=== PATIENT | male | born 1985 | race Caucasian/White ===

== ENCOUNTER 2019-08-17 23:40 | Emergency (ER) | payer MEDICAID ==
[~2019-08-17] VITALS: Ht 180.3 cm; Wt 65.8 kg
[2019-08-17 23:52] VITALS: BP 141/94
--- NOTE | 2019-08-18 01:23 | NUR ---
PT AMBULATED TO BED 10
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
[2019-08-18] MEDS ORDERED: HYDROcodone/APAP 5/325 MG 1 TAB TAB PO ONE (02:55)
[2019-08-18] MEDS ORDERED: BACITRACIN ZINC/POLYMYXIN B OINT 30 GM TUBE TP STA (02:55)
[2019-08-18] MEDS ORDERED: BACITRACIN OINT 500 UNITS/GM PKT TP ONE (03:25)
--- NOTE | 2019-08-18 03:30 | NUR ---
DR. MIMA SHETTY AT BEDSIDE.
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
--- NOTE | 2019-08-18 03:50 | NUR ---
STATES HE WILL BE CALLING BROTHER FOR RIDE HOME.
[2019-08-18 04:00] VITALS: BP 137/82
--- NOTE | 2019-08-18 04:00 | NUR ---
Patient discharged with v/s stable. Written and verbal after care instructions given and explained. Patient alert, oriented and verbalized understanding of instructions. Ambulatory with steady gait. All questions addressed prior to discharge. ID band removed. Patient advised to follow up with PMD. Rx of Bacitracin and Creole given. Patient educated on indication of medication including possible reaction and side effects. Opportunity to ask questions provided and answered.
== END 2019-08-18 04:00 | disposition home or self-care (01) ==
LOC: MED 23:40
DX: T24.232A Burn of second degree of left lower leg, initial encounter (principal); J45.909 Unspecified asthma, uncomplicated; X10.2XXA Contact with fats and cooking oils, initial encounter; Y93.89 Activity, other specified; Y92.89 Other specified places as the place of occurrence of the external cause; Y99.8 Other external cause status
CPT/HCPCS: 16020; 90471; 90715; 99284